=== PATIENT | male | born 1960 | race Caucasian/White ===

== ENCOUNTER → 2025-01-26 | Outpatient (REF) | payer OTHER ==
[~2025-01-26] MED LIST: FENOFIBRATE145 MG PO; IOPAMIDOL 370 MG/ML 100 ML INFUS..BTL INJ ONE; LEVOTHYROX200 MCG/VI PO; MINOCYCLINE HC100 M1 PO; SERTRALINE HCL100 MG PO; SIMVASTATIN40 MG PO; VICODIN 5-5001 EACH PO
[2025-01-26 13:31] LABS: EST GLOMERULAR FILTRATION RATE 92.0 ML/MIN (>=60)
== END ==
LOC: CT 12:34
PROVIDERS: ATTEND Internal Medicine Gastroenterology
DX: K57.90 Diverticulosis of intestine, part unspecified, without perforation or abscess without bleeding (principal); R16.1 Splenomegaly, not elsewhere classified
CPT/HCPCS: 36415; 74177; 82565; 84520; Q9967

== ENCOUNTER → 2025-02-08 | Outpatient (REF) | payer OTHER ==
[~2025-02-08] MED LIST changes: -IOPAMIDOL 370 MG/ML 100 ML INFUS..BTL INJ ONE
== END ==
LOC: US 09:29
PROVIDERS: ATTEND Nurse Practitioner
DX: K76.0 Fatty (change of) liver, not elsewhere classified (principal)
CPT/HCPCS: 76700